=== PATIENT | female | born 1945 | race Caucasian/White ===

== ENCOUNTER → 2021-07-13 | Outpatient (CLI) | payer MEDICARE ==
[2016-03-12 09:27] VITALS: BP 168/72
--- NOTE | 2021-07-13 13:35 | KCIC ---
MRI of the lumbar spine without contrast 07/13/2021 CLINICAL HISTORY: Right leg weakness since June 03. TECHNIQUE: Unenhanced T1-weighted and T2-weighted sagittal and axial and inversion recovery sagittal images of the lumbar spine were obtained. FINDINGS: No previous studies are available for comparison. Very mild S-shaped curvature of the thoracolumbar spine is seen. Mild anterolisthesis of L2 in relati on to L3 is seen. Degenerative signal changes and varying degrees of loss of height are seen involvin g all of the disks of the lower thoracic and throughout the lumbar spine. Degenerative signal changes are seen within the marrow surrounding these discs. The conus medullaris is normal in morphology, po sition, and signal characteristics. At the T10-11 disc space there is a mild generalized disc bulge. Degenerative changes are seen involv ing the facet joints bilaterally. There is ossification of the ligamentum flavum, right greater than left. These findings results in mild central spinal canal stenosis without evidence of cord impingeme nt. Mild right neural foraminal stenosis is seen. The left neural foramen is patent. At the T11-12 disc space there is a mild generalized disc bulge. Degenerative changes are seen involv ing the facet joints bilaterally. There is ossification of the ligamentum flavum. These findings resu lt in mild central spinal canal stenosis without evidence of cord impingement. No neural foraminal st enosis is seen. At the T12-L1 disc space there is a mild generalized disc bulge. Degenerative changes are seen involv ing the facet joints bilaterally. There is mild to moderate ligamentum flavum hypertrophy bilaterally . These findings when combined result in mild central spinal canal stenosis without evidence of cord impingement. Mild bilateral neural foraminal stenosis is seen. At the L1-2 disc space there is a mild to moderate generalized disc bulge. Degenerative changes are s een involving the facet joints bilaterally. There are small facet joint effusions bilaterally. There is moderate ligamentum flavum hypertrophy bilaterally. These findings when combined result in mild ce ntral spinal canal stenosis. No neural foraminal stenosis is seen. At the L2-3 disc space there is a mild to moderate generalized disc bulge. Superimposed on this disc bulge is a right paracentral/lateral focal disc protrusion. This measures 4 mm in AP diameter. Degene rative changes are seen involving the facet joints bilaterally. There are small facet joint effusions bilaterally. There is moderate ligamentum flavum hypertrophy bilaterally. These findings when combin ed result in mild to moderate central spinal canal stenosis. Moderate right neural foraminal stenosis is seen. The left neural foramen is patent. At the L3-4 disc space there is a mild to moderate generalized disc bulge. Degenerative changes are s een involving the facet joints bilaterally. There is mild to moderate ligament flavum hypertrophy floyd aterally. These findings do not result in significant central spinal canal or neural foraminal stenos is. At the L4-5 disc space, the patient is post left hemilaminectomy. There is a mild generalized disc bu lge. Degenerative changes are seen involving the facet joints bilaterally. These findings do not resu lt in significant central spinal canal or neural foraminal stenosis. At the L5-S1 disc space, the patient is post left hemilaminectomy. There is a mild generalized disc b ulge. Degenerative changes are seen involving the facet joints bilaterally. These findings do not res ult in significant central spinal canal or neural foraminal stenosis. IMPRESSION: 1. Post left hemilaminectomy at L4-5 and L5-S1. 2. The changes of degenerative disc disease are seen throughout the lower thoracic and lumbar spine. These findings results in mild central spinal canal stenosis at T10-11, T11-12, T12-L1 and L1-2 witho ut evidence of cord impingement. Mild to moderate central spinal canal stenosis is seen at L2-3. Mild right neural foraminal stenosis is seen at T10-11. Mild bilateral neural foraminal stenosis is seen at T12-L1. Moderate right neural foraminal stenosis is seen at L2-3. Electronically signed by: Darshan Musa MD (07/13/2021 1:33 PM) [id number]
== END ==
LOC: KCIC MRI 12:21
PROVIDERS: ATTEND Family Medicine
DX: M51.36 Other intervertebral disc degeneration, lumbar region (principal); M51.34 Other intervertebral disc degeneration, thoracic region; M51.27 Other intervertebral disc displacement, lumbosacral region; M48.05 Spinal stenosis, thoracolumbar region; M51.25 Other intervertebral disc displacement, thoracolumbar region; M47.897 Other spondylosis, lumbosacral region; M47.895 Other spondylosis, thoracolumbar region; M43.16 Spondylolisthesis, lumbar region; M43.8X5 Other specified deforming dorsopathies, thoracolumbar region; G03.8 Meningitis due to other specified causes
CPT/HCPCS: 72148

== ENCOUNTER → 2021-07-24 | Outpatient (CLI) | payer MEDICARE ==
[2016-03-12 09:27] VITALS: BP 168/72
[~2021-07-24] MED LIST: ASCO100T4 PO; CHOL10004 PO; CHRO400T6 PO; CIDE300T PO; ECHI80CA PO; GLIP5TAB10 PO; KRIL1CAP5 PO; LOSA-73 PO; METF500T16 PO; MONT4GRA2 PO; PRAS25CA PO; SELE200C PO; TRAM50TA PO; UBID10CA5 PO; VITA40TA PO; glucosamine PO; statin
--- NOTE | 2021-07-24 16:08 | PDOC1 ---
INITIAL PAIN CONSULT DATE OF SERVICE: DOS: DATE: 07/24/21 TIME: 16:01 CHIEF COMPLAINT: Chief Complaint: Low back and right lower extremity pain HISTORY OF PRESENT ILLNESS: 76-year-old female presents with low back and right lower extremity for about 2 months not the result of any specific injury or accident that she is aware but is getting worse with time and worse with walking and standing patient reports with weightbearing and the pain is unbearable in the low back and right lower extremity rating the posterior gluteus anterior thigh medial thigh groin medial lower leg to the medial knee and just below patient reports is across the anterior aspect of the thigh worse with walking standing changing positions describes it as tingling with numbness in the leg radiating throbbing shooting sharp constant and aching patient reports it feels cold as well is worse with walking standing better with sitting or laying down but is waking from sleep at least 2-3 times a night can affect her bowel bladder control but no loss of continence she is increased frequency patient reports she is using crutches as well as a cane she has a cane with her today and has been for the past 2 months. Patient has had chiropractic treatment for the last 2 months with multiple manipulations and adjustments, as well as TENS unit application, with some increase in function but no significant reduction in pain also has had oral steroids as well as taking tramadol anti-inflammatory medicines as well [id number] Advil and also taking Tylenol. Patient rates disability rating 0-10 10 being the worst as an 8 with family home responsibilities and social activity 10 with recreation 9 with self-care and/support activities. Patient had an MRI scan of the lumbar spine we reviewed that with her today showing at the L2-3 level mild to moderate generalized disc bulge with a right paracentral lateral focal disc protrusion with hypertrophic facet joints also mild to moderate central spinal canal stenosis and moderate right neuroforaminal stenosis. Patient continues to do stretching and strengthening exercises from her chiropractic therapy at home but is not significant decrease in the pain she does report the tramadol decreases the pain the most worse by about 50% but only last about 6 hours at the most. Patient reports no loss of motor function but significant fatigability of the right lower extremity and again is using crutches and cane to ambulate. PAST MEDICAL HISTORY: PMH: Hypertension, arthritis, COPD, type 2 diabetes, hyperlipidemia PREVIOUS SURGERIES: Past Surgical Hx: Lumbar surgery times 05/06/1967 with hemilaminectomy on the left L4-5 and L5-S1, right parotidectomy, tubal ligation, bilateral cataract extraction, total abdominal hysterectomy CURRENT MEDICATIONS: Current Meds: Active Scripts Medications Dose Route/Sig Max Daily Dose Days Date Category Dose Instructions Apple Cider Vinegar (Cider Vinegar) 300 Mg Tablet 300 Mg PO DAILY 07/24/21 Reported Echinacea (Echinacea Purpurea Root) 80 Mg Capsule 80 Mg PO DAILY 07/24/21 Reported Krill Oil 1,000 Mg Softgel (Krill/Om3/Dha/Epa/Om6/Lip/Astx) 1 Each Capsule 1 Each PO DAILY 07/24/21 Reported Selenium 200 Mcg Capsule 1 Cap PO DAILY 30 07/24/21 Reported [statin] 07/24/21 Reported Montelukast Sodium Packet (Montelukast Sodium) 4 Mg Gran.pack Unknown Dose PO HS 07/24/21 Reported Losartan Potassium 50 Mg Tablet Unknown Dose PO DAILY 07/24/21 Reported Glipizide 5 Mg Tablet Unknown Dose PO DAILY 07/24/21 Reported Metformin Hcl 500 Mg Tablet Unknown Dose PO TIDAC 07/24/21 Reported Co Q-10 (Ubidecarenone) 10 Mg Capsule 1 Cap PO DAILY 30 07/24/21 Reported Dhea (Prasterone (Dhea)) 25 Mg Capsule 1 Cap PO DAILY 30 07/24/21 Reported Chromium (Chromium Amino Acid Chelate) 400 Mcg Tablet 400 Mcg PO DAILY 07/24/21 Reported Vitamin K2 40 Mcg Tablet 40 Mcg PO DAILY 07/24/21 Reported [glucosamine] 1 Tab PO DAILY 07/24/21 Reported Vitamin D3 (Vitamin D) 25 Mcg Tablet 25 Mcg PO DAILY 07/24/21 Reported 1,000 UNITS = 25 MCG Vitamin C (Ascorbic Acid) 100 Mg Tablet 1 Tab PO DAILY 30 07/24/21 Reported ALLERGIES; Allergies: Coded Allergies: codeine (Verified Adverse Reaction, Unknown, nausea, 03/12/16) FAMILY HISTORY: Family Hx: Diabetes SOCIAL HISTORY: Social Hx: Patient does not drink alcohol does smoke about 1-1/2 packs of cigarettes and has for 50+ years continues to smoke does not use any illegal illicit or recreational drugs is is retired has 3 of her children living at home with her and lives locally in [facility] REVIEW OF SYSTEMS: ROS: Positive for those items mentioned in history of present illness, all systems are reviewed, otherwise negative ,and are complete full and well-documented on patient's chart. PHYSICAL EXAM: VS: Blood pressure is 132/58 pulse 94 respirations 18 temperature 97.8 F height is 5 foot 7 inches weight is 207 pounds. PE: PHYSICAL EXAMINATION: GENERAL: The patient is awake, alert, oriented, appropriate, very pleasant in demeanor HEENT: Shows normocephalic, atraumatic. Extraocular movements are intact and symmetrical. Oral cavity: Mucous membranes moist and pink. NECK: Shows anterior throat supple without palpable lymphadenopathy noted. Swallow reflex symmetrical. CHEST: Shows normal on inspection. Breath sounds are clear bilaterally, coarse but no rales rhonchi or wheezes auscultated. HEART: Shows S1, S2 clear. No murmurs auscultated. ABDOMEN: Soft, nontender, nondistended. No palpable organomegaly is noted. BACK: Shows spine grossly in the midline. Normal-appearing cervical lordotic curvature. There is slightly increased thoracic kyphosis, some minor flattening of the lumbar lordotic curvature. Lumbar paraspinous muscles show symmetrical on inspection, on palpation shows some moderate tenderness diffusely throughout the upper, middle and lower distribution of the paraspinous muscles bilaterally and also into the lower thoracic paraspinous musculature, firm and tender, but without specific trigger points, without radiation of pain. The patient has good rotational motion of the lumbar spine, both laterally as well as extension and flexion without significant difficulty. No tenderness over the spinous processes, sacrum or sacroiliac regions. EXTREMITIES: Lower extremities show deep tendon reflexes 2+ in the patellar and tendo calcaneus tendons. Motor exam is 3 on a scale of 5 with right dorsiflexion, extension, quadriceps and hamstring flexion and 5/5 on the left. Peripheral pulses are 1+ posterior tibial. No peripheral edema is noted bilaterally. Lower extremities are warm and dry to touch, equal in color and appearance. Straight leg raise noted to be positive on the right about 35 degrees, decreased with knee flexion, left side is negative. Gaenslen's and Edmundo's maneuvers are negative bilaterally as well. The patient is able to stand, has difficulty getting up from a seated position and requires the use of the arm of the chair and using a cane in her left hand with a significant favoring gait favoring the left lower extremity. SKIN: Shows warm and dry, good turgor. No edema. No sores, rashes or bruising throughout. IMPRESSION: Impression: 76-year-old female with approximate 2-month history increasing pain low back right lower extremity radicular fashion following L2-3 dermatomal distribution. Status post chiropractic treatment as well as continued physical therapy exercises and oral analgesics including tramadol with minimal reduction in pain Arthritis Hypertension Type 2 diabetes Cigarette smoking Plan: Options were discussed the patient including serve medical managements continued physical therapies and interventional techniques. Patient would like to pursue interventional techniques. We discussed a lumbar epidural steroid injection using descriptions as well as anatomical models to describe the procedure. Patient will wait for preauthorization with insurance provider, once obtained we will have her return for translaminar approach L2-3 level lumbar epidural steroid injection with fluoroscopic guidance. In the meantime, patient continue with stretching and strength exercises as currently as well as oral analgesics currently and we will prescribe additional tramadol 50 mg with instructions side effects aware discussed with the medication. JENNI CARMICHAEL MD July 24, 2021 16:08
== END | disposition home or self-care (01) ==
LOC: PNCL 14:07
PROVIDERS: ATTEND Anesthesiology
DX: M54.50 Low back pain, unspecified (principal); M79.604 Pain in right leg; I10 Essential (primary) hypertension; E11.9 Type 2 diabetes mellitus without complications; M19.90 Unspecified osteoarthritis, unspecified site; J44.9 Chronic obstructive pulmonary disease, unspecified; E78.5 Hyperlipidemia, unspecified; Z98.51 Tubal ligation status; Z98.890 Other specified postprocedural states; Z79.899 Other long term (current) drug therapy
CPT/HCPCS: G0463

== ENCOUNTER → 2021-08-07 | Outpatient (CLI) | payer MEDICARE ==
[2016-03-12 09:27] VITALS: BP 168/72
[~2021-08-07] MED LIST changes: +ALPH600C5 PO; +ATOR20TA58 PO; +BIOT10TA PO; +FERR-36 PO; +IBUP400T99 PO; +LOSA1TAB22 PO; +MAGN250T10 PO; +PIOG30TA41 PO; +POTA90TA2 PO; +VITA1TAB19 PO; +ZINC50TA39 PO; +collagen PO
--- NOTE | 2021-08-07 10:58 | PDOC ---
Progress Note - Pain Clinic Date of Service: DOS: DATE: 08/07/21 TIME: 10:55 Diagnosis: Dx: Lumbar radiculopathy with lumbar degenerative disease and lumbar spinal stenosis History or Present Illness: HPI: 36-year-old female returns in follow-up status post initial evaluation preauthorization for lumbar epidural steroid injection patient reports the pain she is having in the back and right lower extremity is significantly reduced after some stretching and tramadol patient reports she has not taken any tramadol for the past week and the pain is still about 90% better patient reports she is sleeping better she is increase her activity with greater ease and comfort although very gradually reports that she has a pain rating of only 1 on scale 10 at its worst currently patient is sleeping better at night she been walking changing positions sitting standing walking with much greater ease and comfort and doing household activities as well. Patient reports no bowel or bladder incontinence no loss of motor function some fatigability in the right leg but no actual overt loss of motor function. Patient reports no bowel or bladder incontinence no other complaints currently. Physical Exam: VS: Blood pressure is 124/62 pulse 83 respirations 16 temperature 98.5 F height is 5 feet 7-1/2 inches weight is 200 pounds. PE: PHYSICAL EXAMINATION: GENERAL: The patient is awake, alert, oriented, appropriate, very pleasant in demeanor HEENT: Shows normocephalic, atraumatic. Extraocular movements are intact and symmetrical. Oral cavity: Mucous membranes moist and pink. NECK: Shows anterior throat supple without palpable lymphadenopathy noted. Swallow reflex symmetrical. CHEST: Shows normal on inspection. Breath sounds are clear bilaterally, no rales or rhonchi auscultated. HEART: Shows S1, S2 clear. No murmurs auscultated. ABDOMEN: Soft, nontender, nondistended. No palpable organomegaly is noted. BACK: Shows spine grossly in the midline. Normal-appearing cervical lordotic curvature. There is slightly increased thoracic kyphosis, some mild flattening of the lumbar lordotic curvature. Lumbar paraspinous muscles show symmetrical on inspection, on palpation shows some moderate tenderness diffusely throughout the upper, middle and lower distribution of the paraspinous muscles, but without specific trigger points, without radiation of pain. The patient has good rotati onal motion of the lumbar spine, both laterally as well as extension and flexion without significant difficulty. EXTREMITIES: Lower extremities show deep tendon reflexes 2+ in the patellar and tendo calcaneus tendons. Motor exam is 4 on a scale of 5 with right dorsiflexion, extension, quadriceps and hamstring flexion and 5/5 on the left. Peripheral pulses are 1+ posterior tibial. No peripheral edema is noted bilaterally. Lower extremities are warm and dry to touch, equal in color and appearance. SKIN: Shows warm and dry, good turgor. No edema. No sores, rashes or bruising throughout. Procedure: Procedure: Options were discussed with the patient. Patient's old chart was reviewed as her current medication regimen updated current review of systems updated today as well. We will hold on injections at this time as patient's pain is significantly reduced, patient encouraged to maintain stretching strength exercises as well as activity as tolerated walking etc. Patient will continue with these activities and will have her return currently on as-needed basis if the radicular pain increases. Medication Injected: Med Injected: None Condition at Discharge: Condition at Discharge: Condition at discharge is stable. JENNI CARMICHAEL MD August 07, 2021 10:58
== END | disposition home or self-care (01) ==
LOC: PNCL 09:57
PROVIDERS: ATTEND Anesthesiology
DX: M51.16 Intervertebral disc disorders with radiculopathy, lumbar region (principal); M48.061 Spinal stenosis, lumbar region without neurogenic claudication; F17.210 Nicotine dependence, cigarettes, uncomplicated; Z79.899 Other long term (current) drug therapy; Z88.5 Allergy status to narcotic agent
CPT/HCPCS: 99212; G0463